=== PATIENT | female | born 1970 ===

== ENCOUNTER 2018-01-23 13:31 | Emergency (ER) | payer MEDICAID, OTHER ==
[2018-01-23 13:31] VITALS: BMI 47.5
[2018-01-23 13:50] VITALS: PULSE 87
--- NOTE | 2018-01-23 14:32 | ED PDOC ---
HPI: Abdomen Time Seen by Provider: 01/23/18 14:16 Chief Complaint (Nursing): Abdominal Pain History Per: Patient History/Exam Limitations: no limitations Onset/Duration Of Symptoms: Days (2), Gradual Outside of [place] travel?: No Current Symptoms Are (Timing): Still Present Severity: Mild Location Of Pain/Discomfort: LLQ Quality Of Discomfort: Cramping Associated Symptoms: Nausea, Vomiting. denies: Fever, Chills, Diarrhea, Back Pain, Chest Pain, Constipation, Urinary Symptoms Exacerbating Factors: None Alleviating Factors: None Last Bowel Movement: Yesterday Additional History Per: Patient Additional Complaint(s): Patient complaining of lower abdominal cramping and vaginal spotting x 2 days.Hx of ovarian cysts. no urinary complaints Past Medical History Reviewed: Historical Data, Nursing Documentation, Vital Signs Vital Signs: Last Vital Signs Temp 98.3 F 01/23/18 16:28 Pulse 87 01/23/18 16:28 Resp 20 01/23/18 16:28 BP 134/88 01/23/18 16:28 Pulse Ox 99 01/23/18 16:40 - Medical History PMH: Anxiety, Asthma, Back Problems, Depression, HTN, Seizures Denies: Chronic Kidney Disease Comment Only: Sleep Apnea (APPT FOR TEST 10-18-14) - Surgical History Surgical History: Cholecystectomy - Family History Family History: States: Unknown Family Hx - Living Arrangements Living Arrangements: With Friends/Others - Social History Current smoker - smoking cessation education provided: No Alcohol: None - Immunization History Hx Tetanus Toxoid Vaccination: No Hx Influenza Vaccination: No Hx Pneumococcal Vaccination: No - Home Medications Home Medications: Ambulatory Orders Medication Instructions Recorded Divalproex Sodium 250 mg PO BID 09/19/15 Hydrochlorothiazide [HCTZ] 25 mg PO DAILY 09/19/15 Ipratropium/Albuterol Sulfate 1 priyank IH DAILY 09/19/15 [Combivent Inhaler] Oxycodone HCl/Acetaminophen 1 tab PO Q6H 09/19/15 [Oxycodone-Acetaminophen 5-325] Prazosin HCl 1 mg PO BID 09/19/15 buPROPion [Wellbutrin] 100 mg PO DAILY 09/19/15 clonazePAM [Klonopin] 1 mg PO Q12 PRN 09/19/15 Albuterol 0.083% [Albuterol 0.083% 2.5 mg IH Q4 PRN #100 neb 05/01/16 Inhal Abril (2.5 mg/3 ml) UD] Albuterol HFA [Ventolin HFA 90 2 puff IH Q4H PRN #1 bottle 05/01/16 mcg/actuation (8 g)] Albuterol/Ipratropium [Combivent 1 puff IH QID #1 inhaler 05/01/16 Respimat] Nebulizer [Inspiration] 1 each INH QID #1 each 05/01/16 Ondansetron ODT [Zofran ODT] 4 mg PO TID PRN #10 odt 05/01/16 Ciprofloxacin HCl [Cipro] 500 mg PO BID #20 tablet 01/23/18 Ibuprofen [Motrin Tab] 600 mg PO QID PRN #30 tab 01/23/18 - Allergies Allergies/Adverse Reactions: Allergies Allergy/AdvReac Type Severity Reaction Status Date / Time amoxicillin Allergy Intermediate RASH Verified 05/01/16 12:03 chlorpromazine HCl Allergy Intermediate RASH Verified 05/01/16 12:03 [From Thorazine] fluoxetine HCl [From Prozac] Allergy Intermediate RASH Verified 05/01/16 12:03 guaifenesin [From Robitussin] Allergy Intermediate RASH Verified 05/01/16 12:03 haloperidol [From Haldol] Allergy Intermediate RASH Verified 05/01/16 12:03 haloperidol lactate Allergy Intermediate RASH Verified 05/01/16 12:03 [From Haldol] Review of Systems ROS Statement: Except As Marked, All Systems Reviewed And Found Negative Constitutional: Negative for: Fever, Chills Cardiovascular: Negative for: Chest Pain, Palpitations Respiratory: Negative for: Cough, Shortness of Breath Gastrointestinal: Positive for: Nausea, Vomiting, Abdominal Pain. Negative for : Diarrhea Genitourinary Female: Positive for: Vaginal Bleeding, Pelvic Pain. Negative for : Dysuria, Hematuria, Vaginal Discharge Neurological: Negative for: Weakness, Numbness Physical Exam - Reviewed Nursing Documentation Reviewed: Yes Vital Signs Reviewed: Yes - Physical Exam Appears: Positive for: Uncomfortable Head Exam: Positive for: ATRAUMATIC, NORMAL INSPECTION, NORMOCEPHALIC Eye Exam: Positive for: Normal appearance, EOMI, PERRL Neck: Positive for: Normal, Painless ROM, Supple Cardiovascular/Chest: Positive for: Regular Rate, Rhythm, Chest Non Tender. Negative for: Edema, Gallop Respiratory: Positive for: Normal Breath Sounds. Negative for: Decreased Breath Sounds, Accessory Muscle Use, Crackles, Rales, Rhonchi Gastrointestinal/Abdominal: Positive for: Normal Exam, Bowel Sounds, Other ( obese). Negative for: Tenderness Pelvic Exam: Positive for: External Exam Normal, Speculum Exam Normal, Bimanual Exam Normal, No Cerv. Motion Tender, No Masses, Other (director paid media by tech). Negative for: Active Bleeding Back: Positive for: Normal Inspection. Negative for: L CVA Tenderness, R CVA Tenderness, Vertebral Tenderness, Decreased ROM Extremity: Positive for: Normal ROM. Negative for: Tenderness, Pedal Edema Neurologic/Psych: Positive for: Alert, economic consultant II-XII, Oriented. Negative for: Motor/Sensory Deficits - Laboratory Results Result Diagrams: 01/23/18 14:39 01/23/18 14:39 - ECG O2 Sat by Pulse Oximetry: 99 Pulse Ox Interpretation: Normal - Radiology X-Ray: Interpreted by Me X-Ray Interpretation: No Acute Disease - Progress ED Course And Treament: pt has a wbc count of 18.6 but repeat abd exam non tender, no fever or signs of sepsis, gave ceftriaxone iv after pt deneis any pcn allergy, d/c on cipro Re-evaluation Time: 17:00 Condition: Improved Medical Decision Making Medical Decision Making: HISTORY: pelvic pain r/p torsion COMPARISON: None available. TECHNIQUE: Transvaginal pelvic ultrasound was performed in longitudinal and transverse projections. FINDINGS: Examination somewhat limited by body habitus. UTERUS: Measures 8.1 x 5.0 x 5.1 cm. Uterus is anteverted and appears moderately inhomogeneous in echotexture. A small hypoechoic focus is questioned at the posterior fundus measuring 0.8 x 0.8 x 0.8 cm likely representing a small mural fibroid. ENDOMETRIUM: Measures 10.3 mm in diameter. Endometrium appears unremarkable however trace fluid is seen in the endocervical canal. CERVIX: No solid lesion is encountered at the cervix however trace fluid seen in the endocervical canal. RIGHT OVARY: Not identified. No suspicious cystic or solid finding is seen the right adnexal compartment. LEFT OVARY: Not identified. No suspicious cystic or solid finding is seen at the left adnexal compartment. FREE FLUID: No significant free fluid noted. OTHER FINDINGS: None. IMPRESSION: Examination was somewhat limited by body habitus with the bilateral ovaries not identified. No suspicious adnexal finding was demonstrated transvaginally nevertheless. Transabdominal ultrasonography may be useful for better characterization of the adnexal compartments. A 0.8 cm fibroid is suspected at the mid and posterior fundus and trace fluid is seen in the endocervical canal with remainder the examination unremarkable. PROCEDURE: CT scan abdomen pelvis dated 01/23/2018 HISTORY: Left flank pain ; rule out renal stone COMPARISON: No prior study available comparison. TECHNIQUE: Contiguous axial images of the abdomen pelvis without oral or intravenous contrast material. Additional 2 dimensional sagittal and coronal reformats generated. Radiation dose: Total exam DLP = 1064.[address] exam was performed using one or more of the following dose reduction techniques: Automated exposure control, adjustment of the mA and/or kV according to patient size, and/or use of iterative reconstruction technique. FINDINGS: LOWER THORAX: There appears to be some minor chronic pleural thickening left posterior sulcus associate with linear scarring. Minimal linear scarring also seen in the lingular and possibly the middle lobe regions. No evidence of effusion or basilar pneumothorax Heart size within range of normal. No significant pericardial effusion LIVER: Liver is enlarged measuring over 21 cm in CC dimension. No obvious hepatic mass or collection. GALLBLADDER AND BILE DUCTS: Unremarkable. Gallbladder has been surgically resected with metallic clips in the gallbladder fossa. PANCREAS: The pancreas appears slightly atrophic and fatty replaced. No obvious pancreatic mass collection or calcification. No significant pancreatic ductal dilatation. SPLEEN: Spleen exhibits normal size and attenuation pattern without mass collection or calcification. ADRENALS: There are no adrenal lesions. KIDNEYS AND URETERS: Kidneys demonstrate relatively symmetric size. No evidence of nephrolithiasis or hydronephrosis. BLADDER: Urinary bladder incompletely distended which presumably accounts for thick- walled appearance. Cystitis not excluded. Clinical correlation with urinalysis recommended. REPRODUCTIVE: The uterus appears unremarkable. . Suspect left adnexal cyst measuring approximately 4 cm x 3.9 cm. Follow-up pelvic ultrasound could be performed for further evaluation if necessary. APPENDIX: What is felt to represent the appendix is seen on coronal image number [id number]. No periappendiceal inflammatory changes. . BOWEL: Evaluation of the bowel is limited due to the lack of oral contrast material. Stomach is incompletely distended. Visualized loops of small bowel exhibit normal contour and caliber. No evidence acute mechanical small bowel obstruction. Stool and air seen throughout the large bowel. No definitive abnormal mural wall thickening. PERITONEUM: Unremarkable. No fluid collection. No free air. LYMPH NODES: No significant lymphadenopathy VASCULATURE: Unremarkable. No aortic aneurysm. BONES: Minor multilevel degenerative spondylosis of the lower thoracic and to a lesser degree lumbar spine. OTHER FINDINGS: None. IMPRESSION: Suspect left adnexal cyst as described. Follow-up pelvic ultrasound could be performed for further evaluation if clinically indicated. Hepatomegaly. Status post cholecystectomy. Disposition - Clinical Impression Clinical Impression: UTI (urinary tract infection) - Patient ED Disposition Is Patient to be Admitted: No Counseled Patient/Family Regarding: Studies Performed, Diagnosis, Need For Followup, Rx Given - Disposition Referrals: [facility] [Outside] (2 days) Disposition: Routine/Home Disposition Time: 17:30 Condition: GOOD Prescriptions: Ciprofloxacin HCl [Cipro] 500 mg PO BID #20 tablet Ibuprofen [Motrin Tab] 600 mg PO QID PRN #30 tab PRN Reason: Pain, Mild (1-3) Instructions: Urinary Tract Infection, Adult (DC) Forms: [employer] ([employer])
[2018-01-23 14:43] LABS: BASO # 0.1 K/uL (0.0-0.2); BASO % 0.5 % (0.0-2.0); EOS # 0.1 K/uL (0.0-0.7); EOS % 0.4 % (0.0-4.0); HEMOGLOBIN 13.1 g/dL (12.0-16.0); LYMPH # 1.9 K/uL (1.0-4.3); LYMPH % 10.2 % (20.0-40.0); MEAN CELL VOLUME 98.1 fl (81.0-99.0); MEAN CORPUSCULAR HEMOGLOBIN 32.2 pg (27.0-31.0); MEAN CORPUSCULAR HGB CONC 32.8 g/dL (33.0-37.0); MEAN PLATELET VOLUME 8.8 fl (7.2-11.7); MONO # 0.7 K/uL (0.0-0.8); MONO % 3.8 % (0.0-10.0); NEUT # 15.8 K/uL (1.8-7.0); NEUT % 85.1 % (50.0-75.0); NRBC % 0.1 % (0.0-0.0); RBC 4.07 Mil/uL (3.80-5.20); RED CELL DISTRIBUTION WIDTH 18.2 % (11.5-14.5); WHITE BLOOD COUNT 18.6 K/uL (4.8-10.8)
[2018-01-23] MEDS: Sodium Chloride 0.9% 1,000 ML IV ONE (14:47)
[2018-01-23 15:04] LABS: AMYLASE 33 U/L (30-110); CALCIUM 8.3 mg/dL (8.4-10.2); GFR AFRICAN-AMERICAN > 60; GFR NON-AFRICAN AMERICAN > 60; LIPASE 39 U/L (23-300)
[2018-01-23 15:08] LABS: SQUAMOUS EPITHIAL 11 /hpf (0-5); URINE AMORPHOUS SEDIMENT RARE /ul (<OCC); URINE BILIRUBIN NEGATIVE (NEGATIVE); URINE BLOOD NEGATIVE (NEGATIVE); URINE CLARITY CLOUDY (Clear); URINE COLOR AMBER (YELLOW); URINE GLUCOSE (UA) NEG (Normal); URINE LEUKOCYTE ESTERASE NEG Leu/uL (Negative); URINE NITRATE NEGATIVE (NEGATIVE); URINE PROTEIN 30 mg/dL (NEGATIVE); URINE UROBILINOGEN 0.2-1.0 mg/dL (0.2-1.0)
[2018-01-23 15:11] LABS: ALBUMIN 3.2 g/dL (3.5-5.0); ALT/SGPT 17 U/L (9-52); AST/SGOT 29 U/L (14-36); BLOOD UREA NITROGEN 8 mg/dl (7-17)
--- NOTE | 2018-01-23 16:22 | CT ---
PROCEDURE: CT scan abdomen pelvis dated 01/23/2018 HISTORY: Left flank pain ; rule out renal stone COMPARISON: No prior study available comparison. TECHNIQUE: Contiguous axial images of the abdomen pelvis without oral or intravenous contrast material. Additional 2 dimensional sagittal and coronal reformats generated. Radiation dose: Total exam DLP = 1064.[address] exam was performed using one or more of the following dose reduction techniques: Automated exposure control, adjustment of the mA and/or kV according to patient size, and/or use of iterative reconstruction technique. FINDINGS: LOWER THORAX: There appears to be some minor chronic pleural thickening left posterior sulcus associate with linear scarring. Minimal linear scarring also seen in the lingular and possibly the middle lobe regions. No evidence of effusion or basilar pneumothorax Heart size within range of normal. No significant pericardial effusion LIVER: Liver is enlarged measuring over 21 cm in CC dimension. No obvious hepatic mass or collection. GALLBLADDER AND BILE DUCTS: Unremarkable. Gallbladder has been surgically resected with metallic clips in the gallbladder fossa. PANCREAS: The pancreas appears slightly atrophic and fatty replaced. No obvious pancreatic mass collection or calcification. No significant pancreatic ductal dilatation. SPLEEN: Spleen exhibits normal size and attenuation pattern without mass collection or calcification. ADRENALS: There are no adrenal lesions. KIDNEYS AND URETERS: Kidneys demonstrate relatively symmetric size. No evidence of nephrolithiasis or hydronephrosis. BLADDER: Urinary bladder incompletely distended which presumably accounts for thick-walled appearance. Cystitis not excluded. Clinical correlation with urinalysis recommended. REPRODUCTIVE: The uterus appears unremarkable. . Suspect left adnexal cyst measuring approximately 4 cm x 3.9 cm. Follow-up pelvic ultrasound could be performed for further evaluation if necessary. APPENDIX: What is felt to represent the appendix is seen on coronal image number [id number]. No periappendiceal inflammatory changes. . BOWEL: Evaluation of the bowel is limited due to the lack of oral contrast material. Stomach is incompletely distended. Visualized loops of small bowel exhibit normal contour and caliber. No evidence acute mechanical small bowel obstruction. Stool and air seen throughout the large bowel. No definitive abnormal mural wall thickening. PERITONEUM: Unremarkable. No fluid collection. No free air. LYMPH NODES: No significant lymphadenopathy VASCULATURE: Unremarkable. No aortic aneurysm. BONES: Minor multilevel degenerative spondylosis of the lower thoracic and to a lesser degree lumbar spine. OTHER FINDINGS: None. IMPRESSION: Suspect left adnexal cyst as described. Follow-up pelvic ultrasound could be performed for further evaluation if clinically indicated. Hepatomegaly. Status post cholecystectomy.
--- NOTE | 2018-01-23 16:24 | US ---
HISTORY: pelvic pain r/p torsion COMPARISON: None available. TECHNIQUE: Transvaginal pelvic ultrasound was performed in longitudinal and transverse projections. FINDINGS: Examination somewhat limited by body habitus. UTERUS: Measures 8.1 x 5.0 x 5.1 cm. Uterus is anteverted and appears moderately inhomogeneous in echotexture. A small hypoechoic focus is questioned at the posterior fundus measuring 0.8 x 0.8 x 0.8 cm likely representing a small mural fibroid. ENDOMETRIUM: Measures 10.3 mm in diameter. Endometrium appears unremarkable however trace fluid is seen in the endocervical canal. CERVIX: No solid lesion is encountered at the cervix however trace fluid seen in the endocervical canal. RIGHT OVARY: Not identified. No suspicious cystic or solid finding is seen the right adnexal compartment. LEFT OVARY: Not identified. No suspicious cystic or solid finding is seen at the left adnexal compartment. FREE FLUID: No significant free fluid noted. OTHER FINDINGS: None. IMPRESSION: Examination was somewhat limited by body habitus with the bilateral ovaries not identified. No suspicious adnexal finding was demonstrated transvaginally nevertheless. Transabdominal ultrasonography may be useful for better characterization of the adnexal compartments. A 0.8 cm fibroid is suspected at the mid and posterior fundus and trace fluid is seen in the endocervical canal with remainder the examination unremarkable.
[2018-01-23 16:28] VITALS: BP 134/88; RESP 20; TEMP 98.3
[2018-01-23 16:40] VITALS: O2SAT 99
[2018-01-23] MEDS ORDERED: Albuterol 0.083% Inhal Sol (2.5 mg/3 mL) UD ONE (16:43)
[2018-01-23] MEDS ORDERED: cefTRIAXone (Rocephin) 1 gm Inj ONE (16:43)
--- NOTE | 2018-01-24 09:00 | RAD ---
HISTORY: cough COMPARISON: Chest radiograph dated 05/14/2011 TECHNIQUE: Chest PA and lateral FINDINGS: LUNGS: No active pulmonary disease. PLEURA: No significant pleural effusion identified. No pneumothorax apparent. CARDIOVASCULAR: Cardiomediastinal silhouette unchanged. OSSEOUS STRUCTURES: No significant abnormalities. VISUALIZED UPPER ABDOMEN: Normal. OTHER FINDINGS: Calcified mediastinal lymph node. IMPRESSION: No active disease.
== END 2018-01-23 18:44 | disposition home or self-care (01) ==
LOC: H.ER 13:31
DX: N39.0 Urinary tract infection, site not specified (principal); I10 Essential (primary) hypertension; Z90.49 Acquired absence of other specified parts of digestive tract
CPT/HCPCS: 71046; 74176; 76830; 80053; 81003; 81025; 82150; 83690; 85025; 87086; 87491; 87591; 96374; 99285; J0696; J2405; J7040